=== PATIENT | male | born 1960 | race Caucasian/White ===

== ENCOUNTER 2024-08-17 12:01 | Observation (INO) ==
[2024-08-17 12:55] LABS: Basophils # (auto) 0.06 K/uL (0.00-0.20); Basophils % (auto) 0.8 %; Eosinophils # (auto) 0.06 K/uL (0.00-0.50); Eosinophils % (auto) 0.8 %; Hematocrit (blood only) 42.7 % (42.0-52.0); Hemoglobin 15.5 g/dl (14.0-18.0); Immature Granulocytes # (auto) 0.02 K/uL (0.01-0.20); Immature Granulocytes % (auto) 0.3 %; Lymphocytes # (auto) 1.83 K/uL (1.20-3.40); Lymphocytes % (auto) 24.2 %; Mean Corpuscular Hemoglobin 31.6 pg (25.0-34.0); Mean Corpuscular Hgb Conc 36.3 g/dL (32.0-36.0); Mean Platelet Volume 10.4 fL (9.4-12.4); Monocytes # (auto) 0.99 K/uL (0.11-0.59); Monocytes % (auto) 13.1 %; Neutrophils # (auto) 4.61 K/uL (1.40-6.50); Neutrophils % (auto) 60.8 %; Platelet Count 207 K/uL (130-400); RDW Coefficient of Variation 12.4 % (11.5-14.5); RDW Standard Deviation 39.3 fL (36.4-46.3); Red Blood Count 4.91 M/uL (4.70-6.10); White Blood Count 7.57 K/ul (4.8-10.8)
[2024-08-17] MEDS: SODIUM CHLORIDE 0.9% 1,000 ML IV ONE (12:58)
[2024-08-17] MEDS: SODIUM CHLORIDE 0.9% 1,000 ML IV SCH (12:58)
[2024-08-17 13:09] LABS: iSTAT Creatinine 1.1 mg/dl (0.6-1.3); iSTAT Hemoglobin 13.9 g/dl (14.0-18.0); iSTAT Ionized Calcium 1.17 mmol/l (1.12-1.32); iSTAT Potassium 2.5 mmol/L (3.3-5.0)
[2024-08-17 13:22] LABS: BUN Creatinine Ratio 14.4 (10-20); Bilirubin Direct 0.2 mg/dl (0-0.2); Bilirubin,Total 0.8 mg/dl (0.2-1.0); Calcium 9.3 mg/dl (8.6-10.3); Creatinine Clr Calc Pharmacy 89.1 ml/min; Magnesium 1.9 mg/dl (1.7-2.4); Potassium 2.6 mmol/L (3.5-5.1); Total Protein 7.3 gm/dl (6.0-8.3)
[2024-08-17 13:23] LABS: Partial Thromboplastin Time 27 Seconds (21-31); Prothrombin Time 10.4 Seconds (9.0-12.0)
[2024-08-17 13:27] LABS: Troponin I High Sensitivity 6.2 pg/ml (0-20)
[2024-08-17] MEDS: OPTIRAY 320 125ml IV ONE (13:47)
[2024-08-17] MEDS: dilTIAZem HCl 5 MG/ML 5 ML VIAL IV STA (14:02)
[2024-08-17] MEDS: dilTIAZem HCl 5 MG/ML 5 ML VIAL IV ONE (14:02)
--- NOTE | 2024-08-17 14:04 | XRay Report ---
XR chest 1V portable CLINICAL HISTORY: Sepsis COMPARISON STUDY: 11/30/2020 FINDINGS: Heart size and pulmonary vasculature are normal. No effusion, consolidation, or pneumothora x. IMPRESSION: No acute findings. ACT 112: Negative or not required by law. Electronically signed by: Elpidio Ramirez M.D. 08/17/2024 2:03 PM
[2024-08-17] MEDS: POTASSIUM CHLORIDE 20 MEQ/15 ML UDC PO STA (14:05)
[2024-08-17] MEDS: POTASSIUM CHLORIDE / WTR 10 MEQ/100 ML PLCT IV SCH ×2 (14:08→17:20)
--- NOTE | 2024-08-17 14:09 | CT Scan Report ---
CT angio chest PE protocol CT DOSE: 828.91 mGy.cm HISTORY: ro pe. TECHNIQUE: Multiple CTA images of the chest were obtained after the intravenous administration of 112 ml Optiray. Coronal and sagittal MIPS were obtained from the axial data set and were submitted for review. All measurements were obtained according to NASCET criteria. A dose lowering technique was u tilized adhering to the principles of ALARA. COMPARISON STUDY: None FINDINGS: There are mild airway secretions. There is no pulmonary consolidation or pleural effusion. No pneumothorax. No enlarged adenopathy. Retroesophageal right subclavian artery is present, anatomic variant. No pericardial effusion. No thoracic aortic dissection or aneurysm. No pulmonary embolism. There is mild fatty liver. There are mild thoracic spine degenerative changes and minimal scoliosis. IMPRESSION: No pulmonary embolism or pneumonia. Otherwise as described. ACT 112: Negative or not required by law. The above report was generated using voice recognition software. It may contain grammatical, syntax o r spelling errors. Electronically signed by: Elpidio Ramirez M.D. 08/17/2024 2:07 PM
[2024-08-17 14:33] LABS: Adenovirus PCR Not Detected (NotDetected); Bordetella parapertussis PCR Not Detected (NotDetected); Bordetella pertussis PCR Not Detected (NotDetected); Chlamydia pneumoniae PCR Not Detected (NotDetected); Coronavirus 229E PCR Not Detected (NotDetected); Coronavirus CoV-2 (COVID19)PCR Not Detected (NotDetected); Coronavirus HKU1 PCR Not Detected (NotDetected); Coronavirus NL63 PCR Not Detected (NotDetected); Coronavirus OC43PCR Not Detected (NotDetected); Human Metapneumovirus PCR Not Detected (NotDetected); Influenza A PCR Not Detected (NotDetected); Influenza B PCR Not Detected (NotDetected); Mycoplasma pneumoniae PCR Not Detected (NotDetected); Parainfluenza Virus 1 PCR Not Detected (NotDetected); Parainfluenza Virus 2 PCR Not Detected (NotDetected); Parainfluenza Virus 3 PCR Not Detected (NotDetected); Parainfluenza Virus 4 PCR Not Detected (NotDetected); Respiratory Syncytial VirusPCR Not Detected (NotDetected); Rhinovirus/Enterovirus PCR Not Detected (NotDetected)
[2024-08-17 15:00] LABS: Base Excess VBG 0.7 mEq/L; HCO3 VBG 25 mmol/L; Oxygen Saturation VBG < 60.0 %; PCO2 VBG 40 mmHg (38-50); PO2 VBG < 20 mmHg; pH VBG 7.41 (7.36-7.41)
--- NOTE | 2024-08-17 15:03 | History & Physical Report ---
Date of Service August 17, 2024 Assessment & Plan (1) Atrial fibrillation with rapid ventricular response: (2) Transaminitis: (3) Depression: Plan 64-year-old male presents with chills fevers nausea vomiting and shortness of breath. Not found of any acute infectious etiology at this time. But was found to be in atrial fibrillation rapid ventricular response. Clinically dehydrated and hypokalemic. Incidentally noted to have transaminitis on presentation #Atrial fibrillation rapid ventricular response. Patient will have his potassium augmented to be given a gram of magnesium although his mg low normal. Will not institute anticoagulation until we evaluate his transaminitis. An echocardiogram is currently ordered. Metoprolol will be given tartrate twice daily and as needed will be used to control heart rate. Likely in the a.m. will begin Eliquis therapy was already educated on stroke risk with atrial fibrillation #Transaminitis, looking for source of the patient's recent fever and illness without evidence of pulmonary changes on imaging of chest we will pursue an ultrasound of his right upper quadrant given his transaminitis although he has no elevation of bilirubin or alkaline phosphatase. Likewise urine culture will also be sent despite negative urine analysis. Stool BioFire is pending #Depression patient will be continued on Lexapro therapy at this time DVT prevention will be SCDs with transition Eliquis in short order patient is a full code History of Present Illness Primary Care Provider: Daisha Case DO 64-year-old male presents via private vehicle for cough intermittent fevers for the last 9 days or so. Was on outpatient antibiotics not getting any better, found to be in atrial fibrillation rapid ventricular response was clinically dehydrated on presentation and heart rate did improve with hydration he is markedly hypokalemic. He does not have a history of an irregular heartbeat. He has not had significant diarrhea to explain potassium losses he states that his fevers eventually quiescent as an outpatient he did take cefdinir without much help in his opinion Evaluation in the ER includes a negative respiratory BioFire negative chest imaging no leukocytosis no procalcitonin. Blood cultures were obtained and pending. Stool BioFire was obtained and pending. (She has no history of frequent loose stools) he is not in any heart failure with regard to his A-fib and has a negative troponin Allergies Allergy/AdvReac Type Severity Reaction Status Date / Time No Known Allergies Allergy Verified 08/17/24 15:12 Home Medications Medication Instructions Recorded Confirmed Type acetaminophen 500 mg capsule 1,000 mg PO DIRECTED PRN Pain 11/24/20 08/17/24 History cetirizine 10 mg tablet (Zyrtec) 10 mg PO QDL 11/24/20 08/17/24 History fluticasone propionate 50 2 spray intranasal QDL 11/24/20 08/17/24 History mcg/actuation nasal spray,suspension amoxicillin 500 mg capsule 2,000 mg PO DIRECTED PRN PRIOR 03/20/22 08/17/24 History TO DENTAL PROCEDURES atorvastatin 20 mg tablet 20 mg PO QDL 03/20/22 08/17/24 History omeprazole 20 mg capsule,delayed 20 mg PO DAILYBB 03/20/22 08/17/24 History release albuterol sulfate 90 mcg/actuation 1 - 2 puff inhalation DIRECTED 08/17/24 08/17/24 History aerosol inhaler PRN Shortness Of Breath Or Wheezing ascorbic acid (vitamin C) 1,000 mg 1,000 mg PO QDL 08/17/24 08/17/24 History tablet (Vitamin C) aspirin 81 mg tablet,delayed 81 mg PO QDL 08/17/24 08/17/24 History release cefdinir 300 mg capsule 300 mg PO BID 08/17/24 08/17/24 History cholecalciferol (vitamin D3) 125 125 mcg PO QDL 08/17/24 08/17/24 History mcg (5,000 unit) tablet (Vitamin D3) escitalopram oxalate 10 mg tablet 10 mg PO QDL 08/17/24 08/17/24 History fluticasone 100 mcg-salmeterol 50 1 inh inhalation BID 08/17/24 08/17/24 History mcg/dose blistr powdr for inhalation (Wixela Inhub) ginkgo biloba 40 mg tablet 40 mg PO QDL 08/17/24 08/17/24 History glucosamine 750 ss-vstbvoaglyj-ryo 1 tab PO QDL 08/17/24 08/17/24 History no1 644 mg-C 30 mg-cinthya 1 mg tablet (Osteo Bi-Flex Triple Strength) magnesium oxide 400 mg PO QDL 08/17/24 08/17/24 History melatonin 10 mg tablet 10 mg PO HS PRN Sleep 08/17/24 08/17/24 History omega-3 fatty acids 1,250 mg 1,250 mg PO QDL 08/17/24 08/17/24 History capsule vitamin B complex 1 cap PO QDL 08/17/24 08/17/24 History Past Med/Surg History Problem List (Updated 08/17/24 @ 16:39 by Ilir Dean MD) Acute hypokalemia (Acute) Transaminitis (Acute) Atrial fibrillation with rapid ventricular response (Acute) Acute pain of right hip (Acute) Dislocation of internal right hip prosthesis, initial encounter (Acute) Degenerative joint disease of right hip Degenerative joint disease of left hip Encounter for pre-operative examination Medical History Anxiety Depression GERD (gastroesophageal reflux disease) Well controlled and stable Hyperlipidemia Surgical History History of repair of rotator cuff RIGHT H/O hand surgery THUMB History of carpal tunnel release RIGHT Left elbow fracture ORIF History of colonoscopy Family History Other Cancer No known health problems Social History Smoking Status: Former smoker Second Hand Exposure: No; Do You Dip or Chew Tobacco: No; Hx Alcohol Use: Yes Alcohol type: beer Hx Substance Use: No Preferred Language: Chinese Communication Ability: Effective 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 Vital signs as documented. Head exam is normocephalic atraumatic Neck is without JVD, thyromegaly, or carotid bruits. Lungs are clear to auscultation, no focal loss of breath sounds Cardiac exam, irregular and tachycardic Abdominal exam reveals normal bowel sounds, soft patient seen mildly tender in right upper quadrant although denies it but was uncomfortable during exam Extremities are nonedematous and both pedal pulses are present Neurologic exam is alert and oriented, no focal loss of strength or sensation Skin is without bruises or rashes Psychologically is without concerns for anxiety or depression.. Results & Data Results & Data Vital Signs (Past 12 Hours) Vital Signs Temp Pulse Resp BP Pulse Ox O2 Del Method 08/17/24 14:51 138 H 24 105/85 99 08/17/24 14:39 144 H 22 120/82 97 Room Air 08/17/24 14:27 122 H 19 101/73 98 Room Air 08/17/24 14:10 124/99 08/17/24 14:05 118/78 08/17/24 14:00 114/86 08/17/24 13:57 106 H 23 96 08/17/24 13:55 117/83 08/17/24 13:06 102 H 20 98 Room Air 08/17/24 13:00 112 H 12 110/76 98 Room Air 08/17/24 12:54 123 H 18 107/83 97 Room Air 08/17/24 12:43 133 H 08/17/24 12:39 121 H 16 119/84 96 Room Air 08/17/24 12:10 98.4 F 125 H 20 108/79 95 Room Air PG Care Time/CCT Total # of Minutes Spent Total Time Spent with Patient: Total time spent is greater than 50% in coordination of care (as documented) at patient's floor/unit and/or counseling patient: Coding Level of Care Code 19421 INT INP/OBS CARE 3/75MIN Diagnoses Atrial fibrillation with rapid ventricular response I48.91 Transaminitis R74.01 Depression F32.9
[2024-08-17 15:49] LABS: C. diff 027-NAP1-BI NEGATIVE; Cdiff Toxin B Gene (2yr or >) Negative Cdiff Gene (Neg)
[2024-08-17 16:20] LABS: Adenovirus F 40/41 PCR Not Detected (NotDetected); Astrovirus PCR Not Detected (NotDetected); Campylobacter PCR Not Detected (NotDetected); Cryptosporidium PCR Not Detected (NotDetected); Cyclospora cayetanensis PCR Not Detected (NotDetected); Entamoeba histolytica PCR Not Detected (NotDetected); Enteroaggregative E.coli(EAEC) Not Detected (NotDetected); Enteropathogenic E.coli (EPEC) Not Detected (NotDetected); Enterotoxigenic E.coli (ETEC) Not Detected (NotDetected); Giardia lamblia PCR Not Detected (NotDetected); Norovirus GI/GII PCR Not Detected (NotDetected); Plesiomonas shigelloides PCR Not Detected (NotDetected); Rotavirus A PCR Not Detected (NotDetected); Salmonella PCR Not Detected (NotDetected); Sapovirus PCR Not Detected (NotDetected); Shiga-like Toxin E.coli (STEC) Not Detected (NotDetected); Shigella/Enteroinvasive E.coli Not Detected (NotDetected); Vibrio cholerae PCR Not Detected (NotDetected); Vibrio species PCR Not Detected (NotDetected); Yersinia enterocolitica PCR Not Detected (NotDetected)
--- NOTE | 2024-08-17 16:26 | Emergency Department Note ---
History of Present Illness General Chief complaint: Illness Stated complaint: LIGHTHEADED, VOMITING, DIARHEA, WEAKNESS, TRMEMORS Time Seen by Provider: 08/17/24 12:36 History of Present Illness Provider Complaint: + nausea, + vomiting and + diarrhea; no abdominal pain Onset (ago): week(s) 1 Description of Vomiting: no bilious, no blood-streaked, no bloody or no coffee grounds Description of Diarrhea: no tarry, no blood-streaked or no bloody (bright red) Associated Abdominal Pain: No Context: no foreign travel, no possible food poisoning, no recent antibiotic use, no recent surgery/procedure, no alcohol abuse, no trauma, no anticoagulant use, no caffeine, no smoking or no marijuana use Associated symptoms: + myalgias, + fever/chills and + shortness of breath; no chest pain, no headaches, no rash or no dysuria Home Medications Medication Instructions Recorded Confirmed Type acetaminophen 500 mg capsule 1,000 mg PO DIRECTED PRN Pain 11/24/20 08/17/24 History cetirizine 10 mg tablet (Zyrtec) 10 mg PO QDL 11/24/20 08/17/24 History fluticasone propionate 50 2 spray intranasal QDL 11/24/20 08/17/24 History mcg/actuation nasal spray,suspension amoxicillin 500 mg capsule 2,000 mg PO DIRECTED PRN PRIOR 03/20/22 08/17/24 History TO DENTAL PROCEDURES atorvastatin 20 mg tablet 20 mg PO QDL 03/20/22 08/17/24 History omeprazole 20 mg capsule,delayed 20 mg PO DAILYBB 03/20/22 08/17/24 History release albuterol sulfate 90 mcg/actuation 1 - 2 puff inhalation DIRECTED 08/17/24 08/17/24 History aerosol inhaler PRN Shortness Of Breath Or Wheezing ascorbic acid (vitamin C) 1,000 mg 1,000 mg PO QDL 08/17/24 08/17/24 History tablet (Vitamin C) aspirin 81 mg tablet,delayed 81 mg PO QDL 08/17/24 08/17/24 History release cefdinir 300 mg capsule 300 mg PO BID 08/17/24 08/17/24 History cholecalciferol (vitamin D3) 125 125 mcg PO QDL 08/17/24 08/17/24 History mcg (5,000 unit) tablet (Vitamin D3) escitalopram oxalate 10 mg tablet 10 mg PO QDL 08/17/24 08/17/24 History fluticasone 100 mcg-salmeterol 50 1 inh inhalation BID 08/17/24 08/17/24 History mcg/dose blistr powdr for inhalation (Wixela Inhub) ginkgo biloba 40 mg tablet 40 mg PO QDL 08/17/24 08/17/24 History glucosamine 750 gb-[id number]-uvn 1 tab PO QDL 08/17/24 08/17/24 History no1 644 mg-C 30 mg-cinthya 1 mg tablet (Osteo Bi-Flex Triple Strength) magnesium oxide 400 mg PO QDL 08/17/24 08/17/24 History melatonin 10 mg tablet 10 mg PO HS PRN Sleep 08/17/24 08/17/24 History omega-3 fatty acids 1,250 mg 1,250 mg PO QDL 08/17/24 08/17/24 History capsule vitamin B complex 1 cap PO QDL 08/17/24 08/17/24 History Allergies Allergy/AdvReac Type Severity Reaction Status Date / Time No Known Allergies Allergy Verified 08/17/24 15:12 Past Med/Surg History Problem List (Updated 08/17/24 @ 16:39 by Ilir Dean MD) Acute hypokalemia (Acute) Transaminitis (Acute) Atrial fibrillation with rapid ventricular response (Acute) Acute pain of right hip (Acute) Dislocation of internal right hip prosthesis, initial encounter (Acute) Degenerative joint disease of right hip Degenerative joint disease of left hip Encounter for pre-operative examination Medical History Anxiety Depression GERD (gastroesophageal reflux disease) Well controlled and stable Hyperlipidemia Surgical History History of repair of rotator cuff RIGHT H/O hand surgery THUMB History of carpal tunnel release RIGHT Left elbow fracture ORIF History of colonoscopy Family History Other Cancer No known health problems Social History Smoking Status: Former smoker Second Hand Exposure: No; Do You Dip or Chew Tobacco: No; Hx Alcohol Use: Yes Alcohol type: beer Hx Substance Use: No Preferred Language: Malawian Communication Ability: Effective 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 Beliefs That Will Affect Care: None Current Living Situation: Significant Other current occupational status: retired Feels Safe at Home: Yes Assistive Devices: Glasses Physical Exam 2 Vital Signs: Vital Signs - 24 hr 08/17/24 12:10 08/17/24 12:39 08/17/24 12:43 Temperature 36.9 C Temperature Source Temporal Artery Sc an Pulse Rate 125 H 121 H 133 H Pulse Rate from Sp O2 Sensor Pulse Rhythm Regular Pulse Strength Normal Respiratory Rate 20 16 Respiratory Effort / Characteristics Non-Labored Sponta neous Respiratory Depth Normal Blood Pressure 108/79 119/84 Blood Pressure Josefa n 88 95 Blood Pressure Pos ition Sitting Pulse Oximetry 95 96 Oxygen Delivery Me thod Room Air Room Air Sepsis Recent Feve r Within 48 Hours No Sepsis New/Unexpla ined Change in Men naa Status N/A Sepsis Action Take n by Nursing No Action Required 08/17/24 12:54 08/17/24 13:00 08/17/24 13:06 Temperature Temperature Source Pulse Rate 123 H 112 H 102 H Pulse Rate from Sp O2 Sensor Pulse Rhythm Irregular Pulse Strength Respiratory Rate 18 12 20 Respiratory Effort / Characteristics Respiratory Depth Blood Pressure 107/83 110/76 Blood Pressure Josefa n 91 87 Blood Pressure Pos ition Pulse Oximetry 97 98 98 Oxygen Delivery Me thod Room Air Room Air Room Air Sepsis Recent Feve r Within 48 Hours Sepsis New/Unexpla ined Change in Men naa Status Sepsis Action Take n by Nursing 08/17/24 13:55 08/17/24 13:57 08/17/24 14:00 Temperature Temperature Source Pulse Rate 106 H Pulse Rate from Sp O2 Sensor 105 H Pulse Rhythm Pulse Strength Respiratory Rate 23 Respiratory Effort / Characteristics Respiratory Depth Blood Pressure 117/83 114/86 Blood Pressure Josefa n 92 99 Blood Pressure Pos ition Pulse Oximetry 96 Oxygen Delivery Me thod Sepsis Recent Feve r Within 48 Hours Sepsis New/Unexpla ined Change in Men naa Status Sepsis Action Take n by Nursing 08/17/24 14:05 08/17/24 14:10 08/17/24 14:27 Temperature Temperature Source Pulse Rate 122 H Pulse Rate from Sp O2 Sensor Pulse Rhythm Pulse Strength Respiratory Rate 19 Respiratory Effort / Characteristics Respiratory Depth Blood Pressure 118/78 124/99 101/73 Blood Pressure Josefa n 97 111 82 Blood Pressure Pos ition Pulse Oximetry 98 Oxygen Delivery Me thod Room Air Sepsis Recent Feve r Within 48 Hours Sepsis New/Unexpla ined Change in Men naa Status Sepsis Action Take n by Nursing 08/17/24 14:39 08/17/24 14:51 08/17/24 15:01 Temperature Temperature Source Pulse Rate 144 H 138 H Pulse Rate from Sp O2 Sensor 113 H Pulse Rhythm Pulse Strength Respiratory Rate 22 24 Respiratory Effort / Characteristics Respiratory Depth Blood Pressure 120/82 105/85 111/78 Blood Pressure Josefa n 94 91 83 Blood Pressure Pos ition Pulse Oximetry 97 99 Oxygen Delivery Me thod Room Air Sepsis Recent Feve r Within 48 Hours Sepsis New/Unexpla ined Change in Men naa Status Sepsis Action Take n by Nursing 08/17/24 15:26 08/17/24 15:56 08/17/24 16:00 Temperature Temperature Source Pulse Rate 117 H 115 H Pulse Rate from Sp O2 Sensor 99 H Pulse Rhythm Pulse Strength Respiratory Rate 16 12 Respiratory Effort / Characteristics Respiratory Depth Blood Pressure 111/86 112/87 98/77 L Blood Pressure Josefa n 90 95 84 Blood Pressure Pos ition Pulse Oximetry 96 97 Oxygen Delivery Me thod Sepsis Recent Feve r Within 48 Hours Sepsis New/Unexpla ined Change in Men naa Status Sepsis Action Take n by Nursing 08/17/24 16:03 08/17/24 16:05 08/17/24 16:06 Temperature Temperature Source Pulse Rate 104 H 122 H Pulse Rate from Sp O2 Sensor 94 H 86 Pulse Rhythm Pulse Strength Respiratory Rate 20 20 Respiratory Effort / Characteristics Respiratory Depth Blood Pressure 106/80 Blood Pressure Josefa n 84 Blood Pressure Pos ition Pulse Oximetry 96 97 Oxygen Delivery Me thod Sepsis Recent Feve r Within 48 Hours Sepsis New/Unexpla ined Change in Men naa Status Sepsis Action Take n by Nursing 08/17/24 16:10 08/17/24 16:12 08/17/24 16:15 Temperature Temperature Source Pulse Rate 114 H Pulse Rate from Sp O2 Sensor 99 H Pulse Rhythm Pulse Strength Respiratory Rate 21 Respiratory Effort / Characteristics Respiratory Depth Blood Pressure 106/78 102/80 Blood Pressure Josefa n 83 84 Blood Pressure Pos ition Pulse Oximetry 95 Oxygen Delivery Me thod Sepsis Recent Feve r Within 48 Hours Sepsis New/Unexpla ined Change in Men naa Status Sepsis Action Take n by Nursing Physical Exam: Physical Exam HENT: Exam performed. - Head: Normocephalic and atraumatic. EYES: Conjunctivae and EOM are normal. Right eye exhibits no discharge. Left eye exhibits no discharge. No scleral icterus. NECK: Normal range of motion. Neck supple. No JVD present. CV: Tachycardic rate, irregular rhythm, normal heart sounds and intact distal pulses. There is no peripheral edema. Palpable radial pulses bue. PULM/CHEST: Effort normal and breath sounds normal. No respiratory distress. No stridor. no wheezes. no rales. ABD: The abdomen is soft. There is no tenderness. NEURO: Motor and sensation grossly intact. Course Course 1236: The patient was evaluated in room C8. A complete history and physical exam was performed Cardiac monitoring: An order was placed for continuous cardiac monitoring. The monitor shows a rate of 120-160 with atrial fibrilation rhythm interpreted by me Patient has no history of atrial fibrillation. Large-bore IV access was obtained and IV fluids started on the patient. As the patient was receiving IV fluids his ventricular rate improved. Thought the patient could be in A-fib secondary to electrolyte imbalance and or volume depletion. Pressure was mildly low we will hold off on any inotropic medications at this time. 1255: Vital signs improving. Ventricular rate improving with IV fluids. Patient continues to be in A-fib but his ventricular rate is now 100-120. 1425: Vital signs stable. Patient remains in A-fib but his ventricular rate is improved after IV fluids. Labs are significant for a potassium of 2.5. Magnesium was within normal limits. Patient does have elevated liver function test. No pain on palpation of the abdomen. BioFire negative. [facility] Potassium repletion started in the emergency department. Administered Medications Discontinued Medications Diltiazem HCl (Diltiazem Hcl 5 Mg/Ml 5 Ml Vial) Confirm Administered Dose 25 mg IV .STK-MED ONE Stop: 08/17/24 12:39 Last Admin: 08/17/24 14:02 Dose: Not Given Documented By: REY Diltiazem HCl (Diltiazem Hcl 5 Mg/Ml 5 Ml Vial) 15 mg IV NOW STA Stop: 08/17/24 12:42 Last Admin: 08/17/24 14:02 Dose: Not Given Documented By: REY Sodium Chloride (Nss) 1,000 mls @ 999 mls/hr IV .Q1H1M AMY Stop: 08/17/24 13:45 Last Infusion: 08/17/24 13:56 Dose: Infused Documented By: Admin: 08/17/24 12:58 Dose: 999 mls/hr Documented By: Sodium Chloride (Nss) 1,000 mls @ 999 mls/hr IV .Q1H1M ONE Stop: 08/17/24 13:42 Last Infusion: 08/17/24 13:56 Dose: Infused Documented By: Admin: 08/17/24 12:58 Dose: 999 mls/hr Documented By: Potassium Chloride (K Tavo / Wtr) 10 meq in 100 mls @ 100 mls/hr IV Q1H AMY Stop: 08/17/24 15:29 Last Admin: 08/17/24 15:49 Dose: 100 mls/hr Documented By: Infusion: 08/17/24 15:42 Dose: Infused Documented By: Admin: 08/17/24 14:08 Dose: 100 mls/hr Documented By: REY Ioversol (Optiray 320 125ml) 112 ml IV ONCE ONE Stop: 08/17/24 13:48 Last Admin: 08/17/24 13:47 Dose: 112 ml Documented By: JIMBO Potassium Chloride (Potassium Chloride 20 Meq/15 Ml Udc) 40 meq PO NOW STA Stop: 08/17/24 13:26 Last Admin: 08/17/24 14:05 Dose: 40 meq Documented By: REY Medical Decision Making Laboratory Data Attestation: I reviewed the patient's lab results. 08/17/24 12:26 08/17/24 12:26 Lab Results 08/17/24 08/17/24 08/17/24 Range/Units 12:26 12:50 12:56 WBC 7.57 (4.8-10.8) K/ul RBC 4.91 (4.70-6.10) M/uL Hgb 15.5 (14.0-18.0) g/dl POC Hgb 13.9 L (14.0-18.0) g/dl Hct 42.7 (42.0-52.0) % POC Hct 41 L (42-52) % MCV 87.0 (80.0-100.0) fL MCH 31.6 (25.0-34.0) pg MCHC 36.3 H (32.0-36.0) g/dL RDW Std Deviation 39.3 (36.4-46.3) fL RDW Coeff of Cathleen 12.4 (11.5-14.5) % Plt Count 207 (130-400) K/uL MPV 10.4 (9.4-12.4) fL Immature Gran % (Auto) 0.3 % Neut % (Auto) 60.8 % Lymph % (Auto) 24.2 % Campbell % (Auto) 13.1 % Eos % (Auto) 0.8 % Baso % (Auto) 0.8 % Neut # (Auto) 4.61 (1.40-6.50) K/uL Lymph # (Auto) 1.83 (1.20-3.40) K/uL Campbell # (Auto) 0.99 H (0.11-0.59) K/uL Eos # (Auto) 0.06 (0.00-0.50) K/uL Baso # (Auto) 0.06 (0.00-0.20) K/uL Immature Gran # (Auto) 0.02 (0.01-0.20) K/uL PT 10.4 (9.0-12.0) Seconds INR 1.0 (0.9-1.1) APTT 27 (21-31) Seconds PTT Ratio 1.0 VBG pH (7.36-7.41) VBG pCO2 (38-50) mmHg VBG pO2 mmHg VBG HCO3 mmol/L VBG O2 Saturation % VBG Base Excess mEq/L POC Sodium 137 (135-144) mmol/L Sodium 135 L (136-145) mmol/L POC Potassium 2.5 L* (3.3-5.0) mmol/L Potassium 2.6 L (3.5-5.1) mmol/L POC Chloride 100 L (101-112) mmol/L Chloride 102 (98-107) mmol/L Carbon Dioxide 21 (21-32) mmol/L POC Total CO2 24 (24-31) mmol/L Anion Gap 12 H (3-11) POC Anion Gap 17.0 (16-25) mmol/L POC BUN 13 (7-18) mg/dl BUN 13 (6-23) mg/dl Creatinine 0.90 (0.6-1.4) mg/dl POC Creatinine 1.1 (0.6-1.3) mg/dl Est Cr Clr Drug Dosing 89.1 ml/min eGFR 94.19 BUN/Creatinine Ratio 14.4 (10-20) Glucose 116 H (70-99(Fasting)) mg/dl POC Glucose (other) 111 H (70-99) mg/dl Lactate 1.1 (0.4-2.0) mmol/L Calcium 9.3 (8.6-10.3) mg/dl POC Ioniz Calcium Johnnie 1.17 (1.12-1.32) mmol/l Magnesium 1.9 (1.7-2.4) mg/dl Total Bilirubin 0.8 (0.2-1.0) mg/dl Direct Bilirubin 0.2 (0-0.2) mg/dl AST 81 H (13-39) U/L ALT 90 H (7-52) U/L Alkaline Phosphatase 121 H (34-104) U/L Troponin I High Sens 6.2 (0-20) pg/ml Total Protein 7.3 (6.0-8.3) gm/dl Albumin 4.2 (3.4-5.0) gm/dl Procalcitonin 0.26 (0-0.5) ng/ml Stl C. cayetanensis PCR (NotDetected) Stool Rotavirus A PCR (NotDetected) Stl Adenov F 40/41 PCR (NotDetected) Stool Astrovirus (PCR) (NotDetected) Stool Campylobacter PCR (NotDetected) Stl C. diff Tox B Gene (Neg) Stl C. diff 027-NAP1-BI Stool Cryptosporidium PCR (NotDetected) Stl E.coli Shiga Tox PCR (NotDetected) Stl Enterotoxigenic E PCR (NotDetected) Stool EPEC (PCR) (NotDetected) Stool EAEC (PCR) (NotDetected) Stl E. histolytica PCR (NotDetected) Stool Giardia Lamblia PCR (NotDetected) Stool Salmonella PCR (NotDetected) Stool Sapovirus (PCR) (NotDetected) Stl P. shigelloides PCR (NotDetected) Stl Shigella/EIEC PCR (NotDetected) St Y.enterocolitica PCR (NotDetected) Stool Vibrio (PCR) (NotDetected) Stl Vibrio cholerae PCR (NotDetected) Stl Norovirus GI/GII PCR (NotDetected) Adenovirus (PCR) Not Detected (NotDetected) B. pertussis DNA (PCR) Not Detected (NotDetected) B.parapertussis DNA PCR Not Detected (NotDetected) C. pneumoniae DNA (PCR) Not Detected (NotDetected) Coronavirus OC43 (PCR) Not Detected (NotDetected) Coronavirus HKU1 (PCR) Not Detected (NotDetected) Coronavirus 229E (PCR) Not Detected (NotDetected) SARS-CoV-2 (PCR) Not Detected (NotDetected) Coronavirus NL63 (PCR) Not Detected (NotDetected) Human Metapneumovir PCR Not Detected (NotDetected) Influenza Type A (PCR) Not Detected (NotDetected) Influenza Type B (PCR) Not Detected (NotDetected) M. pneumoniae (PCR) Not Detected (NotDetected) Parainfluenza 1 (PCR) Not Detected (NotDetected) Parainfluenza 2 (PCR) Not Detected (NotDetected) Parainfluenza 3 (PCR) Not Detected (NotDetected) Parainfluenza 4 (PCR) Not Detected (NotDetected) RSV (PCR) Not Detected (NotDetected) Entero/Rhino (PCR) Not Detected (NotDetected) 08/17/24 08/17/24 Range/Units 14:45 14:52 WBC (4.8-10.8) K/ul RBC (4.70-6.10) M/uL Hgb (14.0-18.0) g/dl POC Hgb (14.0-18.0) g/dl Hct (42.0-52.0) % POC Hct (42-52) % MCV (80.0-100.0) fL MCH (25.0-34.0) pg MCHC (32.0-36.0) g/dL RDW Std Deviation (36.4-46.3) fL RDW Coeff of Cathleen (11.5-14.5) % Plt Count (130-400) K/uL MPV (9.4-12.4) fL Immature Gran % (Auto) % Neut % (Auto) % Lymph % (Auto) % Campbell % (Auto) % Eos % (Auto) % Baso % (Auto) % Neut # (Auto) (1.40-6.50) K/uL Lymph # (Auto) (1.20-3.40) K/uL Campbell # (Auto) (0.11-0.59) K/uL Eos # (Auto) (0.00-0.50) K/uL Baso # (Auto) (0.00-0.20) K/uL Immature Gran # (Auto) (0.01-0.20) K/uL PT (9.0-12.0) Seconds INR (0.9-1.1) APTT (21-31) Seconds PTT Ratio VBG pH 7.41 (7.36-7.41) VBG pCO2 40 (38-50) mmHg VBG pO2 < 20 mmHg VBG HCO3 25 mmol/L VBG O2 Saturation < 60.0 % VBG Base Excess 0.7 mEq/L POC Sodium (135-144) mmol/L Sodium (136-145) mmol/L POC Potassium (3.3-5.0) mmol/L Potassium (3.5-5.1) mmol/L POC Chloride (101-112) mmol/L Chloride (98-107) mmol/L Carbon Dioxide (21-32) mmol/L POC Total CO2 (24-31) mmol/L Anion Gap (3-11) POC Anion Gap (16-25) mmol/L POC BUN (7-18) mg/dl BUN (6-23) mg/dl Creatinine (0.6-1.4) mg/dl POC Creatinine (0.6-1.3) mg/dl Est Cr Clr Drug Dosing ml/min eGFR BUN/Creatinine Ratio (10-20) Glucose (70-99(Fasting)) mg/dl POC Glucose (other) (70-99) mg/dl Lactate (0.4-2.0) mmol/L Calcium (8.6-10.3) mg/dl POC Ioniz Calcium Johnnie (1.12-1.32) mmol/l Magnesium (1.7-2.4) mg/dl Total Bilirubin (0.2-1.0) mg/dl Direct Bilirubin (0-0.2) mg/dl AST (13-39) U/L ALT (7-52) U/L Alkaline Phosphatase (34-104) U/L Troponin I High Sens (0-20) pg/ml Total Protein (6.0-8.3) gm/dl Albumin (3.4-5.0) gm/dl Procalcitonin (0-0.5) ng/ml Stl C. cayetanensis PCR Not Detected (NotDetected) Stool Rotavirus A PCR Not Detected (NotDetected) Stl Adenov F 40/41 PCR Not Detected (NotDetected) Stool Astrovirus (PCR) Not Detected (NotDetected) Stool Campylobacter PCR Not Detected (NotDetected) Stl C. diff Tox B Gene Negative Cdiff Gene (Neg) Stl C. diff 027-NAP1-BI NEGATIVE Stool Cryptosporidium PCR Not Detected (NotDetected) Stl E.coli Shiga Tox PCR Not Detected (NotDetected) Stl Enterotoxigenic E PCR Not Detected (NotDetected) Stool EPEC (PCR) Not Detected (NotDetected) Stool EAEC (PCR) Not Detected (NotDetected) Stl E. histolytica PCR Not Detected (NotDetected) Stool Giardia Lamblia PCR Not Detected (NotDetected) Stool Salmonella PCR Not Detected (NotDetected) Stool Sapovirus (PCR) Not Detected (NotDetected) Stl P. shigelloides PCR Not Detected (NotDetected) Stl Shigella/EIEC PCR Not Detected (NotDetected) St Y.enterocolitica PCR Not Detected (NotDetected) Stool Vibrio (PCR) Not Detected (NotDetected) Stl Vibrio cholerae PCR Not Detected (NotDetected) Stl Norovirus GI/GII PCR Not Detected (NotDetected) Adenovirus (PCR) (NotDetected) B. pertussis DNA (PCR) (NotDetected) B.parapertussis DNA PCR (NotDetected) C. pneumoniae DNA (PCR) (NotDetected) Coronavirus OC43 (PCR) (NotDetected) Coronavirus HKU1 (PCR) (NotDetected) Coronavirus 229E (PCR) (NotDetected) SARS-CoV-2 (PCR) (NotDetected) Coronavirus NL63 (PCR) (NotDetected) Human Metapneumovir PCR (NotDetected) Influenza Type A (PCR) (NotDetected) Influenza Type B (PCR) (NotDetected) M. pneumoniae (PCR) (NotDetected) Parainfluenza 1 (PCR) (NotDetected) Parainfluenza 2 (PCR) (NotDetected) Parainfluenza 3 (PCR) (NotDetected) Parainfluenza 4 (PCR) (NotDetected) RSV (PCR) (NotDetected) Entero/Rhino (PCR) (NotDetected) Imaging Data Attestation: I personally reviewed and interpreted this imaging study as follows: My Impression: Chest x-ray negative. Airway clear. No pneumothorax. No consolidation. No cardiomegaly or cephalization.. No free air under the diaphragm. No fractures of the skeletal structures. Radiologist's Impression: Chest X-Ray 08/17/24 12:38 XR chest 1V portable CLINICAL HISTORY: Sepsis COMPARISON STUDY: 11/30/2020 FINDINGS: Heart size and pulmonary vasculature are normal. No effusion, consolidation, or pneumothorax. IMPRESSION: No acute findings. ACT 112: Negative or not required by law. Electronically signed by: Elpidio Ramirez M.D. 08/17/2024 2:03 PM Chest CTA 08/17/24 12:39 CT angio chest PE protocol CT DOSE: 828.91 mGy.cm HISTORY: ro pe. TECHNIQUE: Multiple CTA images of the chest were obtained after the intravenous administration of 112 ml Optiray. Coronal and sagittal MIPS were obtained from the axial data set and were submitted for review. All measurements were obtained according to NASCET criteria. A dose lowering technique was utilized adhering to the principles of ALARA. COMPARISON STUDY: None FINDINGS: There are mild airway secretions. There is no pulmonary consolidation or pleural effusion. No pneumothorax. No enlarged adenopathy. Retroesophageal right subclavian artery is present, anatomic variant. No pericardial effusion. No thoracic aortic dissection or aneurysm. No pulmonary embolism. There is mild fatty liver. There are mild thoracic spine degenerative changes and minimal scoliosis. IMPRESSION: No pulmonary embolism or pneumonia. Otherwise as described. ACT 112: Negative or not required by law. The above report was generated using voice recognition software. It may contain grammatical, syntax or spelling errors. Electronically signed by: Elpidio Ramirez M.D. 08/17/2024 2:07 PM ECG Data Attestation: I personally reviewed and interpreted this ECG as follows: Additional Comments: EKG #1 at 1223: Atrial fibrillation with rate of 146. QRS [address] elevation or ST depression. PVCs present. EKG #2 at 1253 status post initiation of IV fluid boluses: Atrial fibrillation with a rate of 114. QRS [address] elevation or ST depression. PVCs present. MDM Narrative 1236: The patient was evaluated in room C8. A complete history and physical exam was performed Cardiac monitoring: An order was placed for continuous cardiac monitoring. The monitor shows a rate of 120-160 with atrial fibrilation rhythm interpreted by me Patient has no history of atrial fibrillation. Large-bore IV access was obtained and IV fluids started on the patient. As the patient was receiving IV fluids his ventricular rate improved. Thought the patient could be in A-fib secondary to electrolyte imbalance and or volume depletion. Pressure was mildly low we will hold off on any inotropic medications at this time. 1255: Vital signs improving. Ventricular rate improving with IV fluids. Patient continues to be in A-fib but his ventricular rate is now 100-120. 1425: Vital signs stable. Patient remains in A-fib but his ventricular rate is improved after IV fluids. Labs are significant for a potassium of 2.5. Magnesium was within normal limits. Patient does have elevated liver function test. No pain on palpation of the abdomen. BioFire negative. [facility] Potassium repletion started in the emergency department. Impression & Plan Acute hypokalemia, Atrial fibrillation with rapid ventricular response, Transaminitis Discharge Plan Visit Data Chief Complaint: Illness Stated Complaint: LIGHTHEADED, VOMITING, DIARHEA, WEAKNESS, TRMEMORS ED Provider: Ilir Dean Discharge Problem: Acute hypokalemia, Atrial fibrillation with rapid ventricular response, Transaminitis Patient Disposition: Admitted As Inpatient Condition: Serious Forms Stand Alone Forms: My [facility] Prescriptions Prescriptions: No Action amoxicillin 500 mg capsule 2,000 mg PO DIRECTED PRN (Reason: PRIOR TO DENTAL PROCEDURES) atorvastatin 20 mg tablet 20 mg PO QDL omeprazole 20 mg capsule,delayed release(DR/EC) 20 mg PO DAILYBB cetirizine [Zyrtec] 10 mg Tablet 10 mg PO QDL fluticasone propionate 50 mcg/actuation [place],Suspension 2 spray INTRANASAL QDL acetaminophen 500 mg Capsule 1,000 mg PO DIRECTED PRN (Reason: Pain) ascorbic acid (vitamin C) [Vitamin C] 1,000 mg Tablet 1,000 mg PO QDL aspirin 81 mg Tablet,Delayed Release (Dr/Ec) 81 mg PO QDL ginkgo biloba 40 mg Tablet 40 mg PO QDL Rx Instructions: give with meal/snack fluticasone propion-salmeterol [Wixela Inhub] 100-50 mcg/dose blister with device 1 inh INHALATION BID albuterol sulfate 90 mcg/actuation HFA aerosol inhaler 1 - 2 puff INHALATION DIRECTED PRN (Reason: Shortness Of Breath Or Wheezing) cefdinir 300 mg capsule 300 mg PO BID Rx Instructions: STARTED 08/12/24 FOR 10 DAYS vitamin B complex [Super B Complex] Capsule 1 cap PO QDL escitalopram oxalate 10 mg tablet 10 mg PO QDL omega-3 fatty acids 1,250 mg Capsule 1,250 mg PO QDL cholecalciferol (vitamin D3) [Vitamin D3] 125 mcg (5,000 unit) Tablet 125 mcg PO QDL melatonin 10 mg Tablet 10 mg PO HS PRN (Reason: Sleep) Osteo Bi-Flex Triple Strength 750 mg-644 mg- 30 mg-1 mg Tablet 1 tab PO QDL magnesium oxide 400 mg magnesium Tablet 400 mg PO QDL Referrals Referrals: Daisha Case DO [Primary Care Provider] -
[2024-08-17] MEDS ORDERED: ACETAMINOPHEN 325 MG TAB PO PRN (17:06)
[2024-08-17] MEDS ORDERED: METOPROLOL TARTRATE 1 MG/ML VIAL IV PRN (17:06)
[2024-08-17] MEDS ORDERED: ONDANSETRON INJ 2 MG/ML 2 ML VIAL IV PRN (17:06)
[2024-08-17] MEDS ORDERED: MELATONIN 3 MG TAB PO PRN (17:06)
[2024-08-17] MEDS: LACTATED RINGER'S 1,000 ML IV SCH (17:20)
[2024-08-17] MEDS: ASPIRIN 81 MG CHEW PO STA (17:20)
[2024-08-17] MEDS: MAGNESIUM SULFATE / D5W 1 GM/100 ML BAG IV ONE (17:28)
[2024-08-17 17:29] LABS: Appearance Urine Clear (Clear); Bacteria Urine Automated None Seen (None Seen); Bilirubin Urine Negative (Negative); Blood Urine Trace (Negative); Color Urine Yellow; Epithelial Cell Urine Auto 0-2 /hpf (0-2); Glucose Urine UA Negative (Negative); Ketones Urine Trace (Negative); Leukocyte Esterase Urine Negative (Negative); Nitrite Urine Negative (Negative); Protein Urine Trace (Negative); Specific Gravity Urine > 1.045 (1.000-1.030); Urobilinogen Urine Negative (Negative); WBC Urine Automated 0-5 /hpf (0-5)
--- NOTE | 2024-08-17 18:35 | Ultrasound Report ---
EXAM: US gallbladder CLINICAL HISTORY: Eval for cholecystitis. TECHNIQUE: Real-time ultrasound examination of the right upper quadrant was performed with attention to the Gallbladder using grayscale and duplex. COMPARISON: None. FINDINGS: Liver: Enlarged, measuring approximately 21.1 cm in craniocaudal dimension. Diffusely increased echogenicity, compatible with hepatic steatosis (fatty liver). A simple hepatic cyst is noted in the right lobe, measuring 2.5 × 2.9 cm. Main portal vein appears patent with normal flow (Doppler not specifically stated). Gallbladder: Adequately distended. Wall thickness is normal, measuring 0.2 cm. No gallstones or sludge identified. A small echogenic focus adherent to the gallbladder wall, measuring 0.24 cm, likely represents a small polyp. No pericholecystic fluid. Guerra sign is negative on ultrasound. Common Bile Duct (CBD): Measures between 0.5?0.65 cm, within normal limits for age. Pancreas: Partially visualized; limited by overlying bowel gas. The visualized portion shows homogeneous echotexture. Main pancreatic duct measures approximately 0.15 cm, within normal limits. Right Kidney: Measures 12 × 5.1 × 6.1 cm; normal in size. Normal cortical echogenicity. No evidence of hydronephrosis, renal mass, or nephrolithiasis. IMPRESSION: 1. No sonographic evidence of acute cholecystitis. No gallstones or pericholecystic fluid. 2. Small gallbladder polyp measuring 0.24 cm. Typically benign when 1 cm, but follow-up may be considered. 3. Hepatomegaly with diffuse fatty liver (hepatic steatosis). 4. Simple hepatic cyst in the right lobe measuring 2.9 cm. No features concerning for complexity or malignancy. 5. Normal-appearing right kidney and normal caliber common bile duct. 6. Limited visualization of pancreas due to bowel gas, but no abnormality identified in the visualized portion. 7. Clinical correlation is suggested. Electronically signed by Gume Figueroa 08-17-2024 6:35 PM
[2024-08-18] MEDS: PANTOprazole 40 MG TAB PO SCH (06:09)
[2024-08-18] MEDS: IBUPROFEN 200 MG TAB PO STA (06:30)
[2024-08-18 07:11] LABS: Hematocrit (blood only) 35.3 % (42.0-52.0); Hemoglobin 12.3 g/dl (14.0-18.0); Mean Corpuscular Hemoglobin 31.5 pg (25.0-34.0); Mean Corpuscular Hgb Conc 34.8 g/dL (32.0-36.0); Mean Corpuscular Volume 90.5 fL (80.0-100.0); Mean Platelet Volume 10.6 fL (9.4-12.4); Platelet Count 190 K/uL (130-400); RDW Coefficient of Variation 12.6 % (11.5-14.5); RDW Standard Deviation 41.6 fL (36.4-46.3); White Blood Count 7.29 K/ul (4.8-10.8)
[2024-08-18 07:35] LABS: Albumin Globulin Ratio 1.4 (0.9-2); BUN Creatinine Ratio 13.6 (10-20); Bilirubin,Total 0.4 mg/dl (0.2-1.0); Calcium 8.1 mg/dl (8.6-10.3); Creatinine Clr Calc Pharmacy 121.5 ml/min; Globulin 2.4 gm/dl (2.5-4.0); Magnesium 2.2 mg/dl (1.7-2.4); Potassium 2.7 mmol/L (3.5-5.1); Total Protein 5.7 gm/dl (6.0-8.3)
[2024-08-18 07:45] LABS: Troponin I High Sensitivity 6.2 pg/ml (0-20)
[2024-08-18] MEDS: MAGNESIUM OXIDE 400 MG TAB PO SCH (08:21)
[2024-08-18] MEDS: POTASSIUM CHLORIDE CRTAB 20 MEQ TABCR PO SCH ×2 (08:21→15:28)
[2024-08-18] MEDS: FLUTICASONE/VILANTEROL 100/25MCG 14 PUFFS/INHALER INH SCH (08:22)
[2024-08-18] MEDS: METOPROLOL TARTRATE 25 MG TAB PO SCH ×2 (08:31→20:51)
[2024-08-18] MEDS: POTASSIUM CHLORIDE / WTR 10 MEQ/100 ML PLCT IV SCH (08:34)
[2024-08-18] MEDS: LOPERAMIDE HCL 2 MG CAP PO STA (09:02)
--- NOTE | 2024-08-18 10:14 | XCELERA ---
[id number]
--- NOTE | 2024-08-18 11:55 | Electrocardiogram Report ---
Test Reason : Blood Pressure : */* mmHG Vent. Rate : 146 BPM Atrial Rate : * BPM P-R Int : * ms QRS Dur : 74 ms QT Int : 310 ms P-R-T Axes : * 52 8 degrees QTcB Int : 483 ms Atrial fibrillation with rapid ventricular response with premature ventricular or aberrantly conducte d complexes Nonspecific ST abnormality Abnormal ECG When compared with ECG of 20-Mar-2022 02:37, Atrial fibrillation has replaced Sinus rhythm Vent. rate has increased by [address] depression has replaced ST elevation in Anterior leads Nonspecific T wave abnormality now evident in Anterior leads Confirmed by Renny Gaona ([id number]) on 08/18/2024 11:55:01 AM Referred By: Confirmed By: Renny Gaona
[2024-08-18] MEDS: FLUTICASONE PROPIONATE NA SPR 16 GM BTL SCH (12:04)
[2024-08-18] MEDS: ESCITALOPRAM OXALATE 10 MG TAB PO SCH (12:04)
[2024-08-18] MEDS: ATORVASTATIN 20 MG TAB PO SCH (12:05)
[2024-08-18] MEDS: CETIRIZINE HCL 10 MG TABLET PO SCH (12:05)
[2024-08-18] MEDS: ASPIRIN 81 MG ECTAB PO SCH (12:05)
[2024-08-18] MEDS: METOPROLOL TARTRATE 25 MG TAB PO ONE (13:17)
[2024-08-18] MEDS: PSYLLIUM HUSK 4GM PACKET PO ONE (13:18)
[2024-08-18] MEDS: LOPERAMIDE HCL 2 MG CAP PO PRN (13:48)
--- NOTE | 2024-08-18 14:34 | Hospitalist Progress Note ---
Date of Service August 18, 2024 Assessment & Plan (1) Atrial fibrillation with rapid ventricular response: (2) Transaminitis: (3) Depression: Plan 64-year-old male presents with chills fevers nausea vomiting and shortness of breath. Not found of any acute infectious etiology at this time. But was found to be in atrial fibrillation rapid ventricular response. Clinically dehydrated and hypokalemic. Incidentally noted to have transaminitis on presentation #Atrial fibrillation rapid ventricular response. Patient with some reduction in heart rate control escalating metoprolol throughout the day potassium is stubbornly low due to increased stool output with negative infectious etiologies. Imodium and Metamucil are begun. Echocardiogram is unremarkable including normal atrial size, will begin Eliquis therapy was already educated on stroke risk with atrial fibrillation. TSH will be checked in the a.m. #Transaminitis, improving. Gallbladder ultrasound negative, stool BioFire negative #Depression patient will be continued on Lexapro therapy at this time DVT prevention will be SCDs with transition Eliquis in short order patient is a full code Admission and Anticipated Discharge Date Admission Date: August 17, 2024 Subjective Patient has no recurrence of symptoms today however his atrial fibrillation remains about 110-150 escalation of metoprolol as occurring throughout the day on 08/18 no other persistently hypokalemic to the diarrhea. Reportedly had previous workup by [facility] without an exact diagnosis Physical Exam Physical Exam: Irregularly irregular heartbeat lungs are clear Abdomen with normal active bowel sounds soft nontender Results & Data Results & Data Vital Signs (Past 12 Hours) Vital Signs Temp Pulse Pulse Pulse Resp BP Pulse Ox 08/18/24 11:10 97.3 F L 110 H 18 118/75 95 08/18/24 08:09 157 H 08/18/24 07:13 102 H 08/18/24 07:04 97.9 F 87 18 111/73 98 08/18/24 03:07 98.1 F 92 H 18 94/60 L 98 O2 Del Method 08/18/24 11:10 Room Air 08/18/24 08:09 08/18/24 07:13 08/18/24 07:04 Room Air 08/18/24 03:07 Room Air Laboratory Results Reviewed CBC reviewed chemistry persistent severe hypokalemia with normal magnesium PG Care Time/CCT Total # of Minutes Spent Total Time Spent with Patient: Total time spent is greater than 50% in coordination of care (as documented) at patient's floor/unit and/or counseling patient: Coding Level of Care Code 05392 SUB INP/OBS CARE 350MIN Diagnoses Atrial fibrillation with rapid ventricular response I48.91 Transaminitis R74.01 Depression F32.9
[2024-08-18] MEDS: BISMUTH SUBSALICYLATE 262 MG CHEW PO ONE (17:26)
[2024-08-18] MEDS: APIXABAN 5 MG TABLET PO SCH (20:49)
[2024-08-18] MEDS: PSYLLIUM HUSK 4GM PACKET PO SCH (20:53)
[2024-08-18] MEDS: SACCHAROMYCES BOULARDII 250 MG CAP PO SCH (20:53)
[2024-08-18 21:57] LABS: A calco-baum cmplx NotReported Not Detected (NotDetected); Bact fragilis Not Reported Not Detected (NotDetected); Blood Culture Id Panel PCR Panel Negative (NotDetected); C auris Not Reported Not Detected (NotDetected); Calbicans Not Reported Not Detected (NotDetected); Candida glabrata Not Reported Not Detected (NotDetected); Candida krusei Not Reported Not Detected (NotDetected); Cneoformans/gatti Not Reported Not Detected (NotDetected); Cparapsilosis Not Reported Not Detected (NotDetected); Ctropicalis Not Reported Not Detected (NotDetected); E cloacae compx Not Reported Not Detected (NotDetected); Efaecalis Not Reported Not Detected (NotDetected); Efaecium Not Reported Not Detected (NotDetected); Enterobacterales Not Reported Not Detected (NotDetected); Escherichia coli Not Reported Not Detected (NotDetected); H influenzae Not Reported Not Detected (NotDetected); K aerogenes Not Reported Not Detected (NotDetected); Koxytoca Not Reported Not Detected (NotDetected); Kpneumoniae grp Not Reported Not Detected (NotDetected); Lmonocyt Not Reported Not Detected (NotDetected); N meningitidis Not Reported Not Detected (NotDetected); P aeruginosa Not Reported Not Detected (NotDetected); Proteus spp Not Reported Not Detected (NotDetected); Salmonella spp Not Reported Not Detected (NotDetected); Staph lugdunensis Not Reported Not Detected (NotDetected); Staph spp. Not Reported Not Detected (NotDetected); Staphaureus Not Reported Not Detected (NotDetected); Staphepi Not Reported Not Detected (NotDetected); Stenmaltophilia Not Reported Not Detected (NotDetected); Strep agal(GrpB) Not Reported Not Detected (NotDetected); Strep pneum Not Reported Not Detected (NotDetected); Strep pyog (GrpA) Not Reported Not Detected (NotDetected); Strep spp Not Reported Not Detected (NotDetected)
[2024-08-19 06:08] LABS: Hematocrit (blood only) 33.6 % (42.0-52.0); Hemoglobin 11.6 g/dl (14.0-18.0); Mean Corpuscular Hemoglobin 31.8 pg (25.0-34.0); Mean Corpuscular Hgb Conc 34.5 g/dL (32.0-36.0); Mean Corpuscular Volume 92.1 fL (80.0-100.0); Mean Platelet Volume 10.1 fL (9.4-12.4); Platelet Count 196 K/uL (130-400); RDW Coefficient of Variation 12.7 % (11.5-14.5); RDW Standard Deviation 42.6 fL (36.4-46.3); Red Blood Count 3.65 M/uL (4.70-6.10); White Blood Count 5.95 K/ul (4.8-10.8)
[2024-08-19 06:42] LABS: Albumin Globulin Ratio 1.3 (0.9-2); BUN Creatinine Ratio 10.7 (10-20); Bilirubin,Total 0.4 mg/dl (0.2-1.0); Calcium 8.2 mg/dl (8.6-10.3); Creatinine Clr Calc Pharmacy 107.1 ml/min; Globulin 2.4 gm/dl (2.5-4.0); Magnesium 2.1 mg/dl (1.7-2.4); Potassium 3.3 mmol/L (3.5-5.1); Total Protein 5.6 gm/dl (6.0-8.3)
[2024-08-19 06:59] LABS: Thyroid Stimulating Hormone 1.732 uIu/ml (0.300-4.500)
[2024-08-19] MEDS: METOPROLOL TARTRATE 50 MG TAB PO SCH (09:38)
[2024-08-19] MEDS: PSYLLIUM HUSK 4GM PACKET PO SCH (09:38)
[2024-08-19] MEDS: BISMUTH SUBSALICYLATE 262 MG CHEW PO SCH (09:42)
[2024-08-19] MEDS: POTASSIUM CHLORIDE / WTR 10 MEQ/100 ML PLCT IV SCH (09:52)
--- NOTE | 2024-08-19 16:02 | Cardiology Consultation ---
Date of Consultation August 19, 2024 Assessment & Plan (1) Atrial fibrillation with rapid ventricular response: Plan 1. Atrial fibrillation: Unclear duration but likely acute. He did not seem to have any warnings or alerts from his Apple Watch. The Apple Watch seems to be quite good at sensing atrial fibrillation. I suspect the development of atrial fibrillation was related to his volume and electrolyte changes. He does not seem to have many other risk factors for atrial fibrillation. He did not describe a history consistent with obstructive sleep apnea. No known history of high blood pressure. No valvular heart disease. No structural heart disease, thyroid studies were normal. Not obese. He does endorse moderate alcohol intake. Somewhere between 2 and 4 drinks daily. Reducing alcohol intake may reduce his chance of recurrent atrial fibrillation. Fortunately, few symptoms associated with the arrhythmia. Hard to tell with some of the symptoms leading up to his admission were related, but I think they were more specific to his dehydration. Rates have been adequate if not optimal since starting metoprolol. Metoprolol dose being increased slowly. Patient has been started on apixaban.[id number] or appears to be 1 (age). However, I think anticoagulation at this point is reasonable given the potential need for cardioversion at some point. Hopefully as his clinical condition including volume and electrolytes improved he will convert to sinus on his own. Otherwise I would continue increasing metoprolol as tolerated for better rate control. I will continue apixaban at 5 mg twice daily for now. History of Present Illness Reason for Consultation: Atrial fibrillation Requesting Physician: Rashad Attending Physician: Derrick Solorzano MD History of Present Illness The patient is a 64-year-old gentleman without a known history of cardiac disease who presents to the hospital due to weakness and diarrhea. The patient states that his symptoms began a couple weeks prior. Became somewhat progressive over the course of a few weeks and included significant gastrointestinal upset. He became weak, had difficulty performing usual activities and had an element of dizziness. Not generally aware of palpitations or elevated heart rate. He does have an Apple Watch at home but did not report any specific warnings or noticed any high heart rates. His symptoms began with the sensation of some neck and upper back pain. He also had fevers around that time. The symptoms seem to have improved. At the time admission he was discovered to have a tachycardia and be in atrial fibrillation. He was felt to be significantly dehydrated and underwent fluid resuscitation. Metoprolol was also initiated. Currently he is feeling better. Still some gastrointestinal symptoms but mild. He has been ambulatory around his room with minimal difficulty. No overt dizziness or lightheadedness. Still no sensation of a rapid heartbeat or an irregularity in his heartbeat. Allergies Allergy/AdvReac Type Severity Reaction Status Date / Time No Known Allergies Allergy Verified 08/17/24 15:12 Home Medications Medication Instructions Recorded Confirmed Type acetaminophen 500 mg capsule 1,000 mg PO DIRECTED PRN Pain 11/24/20 08/17/24 History cetirizine 10 mg tablet (Zyrtec) 10 mg PO QDL 11/24/20 08/17/24 History fluticasone propionate 50 2 spray intranasal QDL 11/24/20 08/17/24 History mcg/actuation nasal spray,suspension amoxicillin 500 mg capsule 2,000 mg PO DIRECTED PRN PRIOR 03/20/22 08/17/24 History TO DENTAL PROCEDURES atorvastatin 20 mg tablet 20 mg PO QDL 03/20/22 08/17/24 History omeprazole 20 mg capsule,delayed 20 mg PO DAILYBB 03/20/22 08/17/24 History release albuterol sulfate 90 mcg/actuation 1 - 2 puff inhalation DIRECTED 08/17/24 08/17/24 History aerosol inhaler PRN Shortness Of Breath Or Wheezing ascorbic acid (vitamin C) 1,000 mg 1,000 mg PO QDL 08/17/24 08/17/24 History tablet (Vitamin C) aspirin 81 mg tablet,delayed 81 mg PO QDL 08/17/24 08/17/24 History release cefdinir 300 mg capsule 300 mg PO BID 08/17/24 08/17/24 History cholecalciferol (vitamin D3) 125 125 mcg PO QDL 08/17/24 08/17/24 History mcg (5,000 unit) tablet (Vitamin D3) escitalopram oxalate 10 mg tablet 10 mg PO QDL 08/17/24 08/17/24 History fluticasone 100 mcg-salmeterol 50 1 inh inhalation BID 08/17/24 08/17/24 History mcg/dose blistr powdr for inhalation (Wixela Inhub) ginkgo biloba 40 mg tablet 40 mg PO QDL 08/17/24 08/17/24 History glucosamine 750 rq-[id number]-gsk 1 tab PO QDL 08/17/24 08/17/24 History no1 644 mg-C 30 mg-cinthya 1 mg tablet (Osteo Bi-Flex Triple Strength) magnesium oxide 400 mg PO QDL 08/17/24 08/17/24 History melatonin 10 mg tablet 10 mg PO HS PRN Sleep 08/17/24 08/17/24 History omega-3 fatty acids 1,250 mg 1,250 mg PO QDL 08/17/24 08/17/24 History capsule vitamin B complex 1 cap PO QDL 08/17/24 08/17/24 History Patient History Medical History Anxiety Depression GERD (gastroesophageal reflux disease) Well controlled and stable Hyperlipidemia Surgical History History of repair of rotator cuff RIGHT H/O hand surgery THUMB History of carpal tunnel release RIGHT Left elbow fracture ORIF History of colonoscopy Family History Other Cancer No known health problems Social History Smoking Status: Former smoker Second Hand Exposure: No; Do You Dip or Chew Tobacco: No; Hx Alcohol Use: Yes Alcohol type: beer Hx Substance Use: No Preferred Language: Panamanian Communication Ability: Effective 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 Mood and affect appeared normal. He answered all questions appropriately. HEENT: Pupils are equal and reactive to light and accommodation. Extraocular movements are intact. The sclerae are anicteric. Neuro: Cranial nerves intact Lungs: Clear to auscultation bilaterally. He has good air movement without use of accessory muscles. Crackles at the bases bilaterally. Cardiac: Heart demonstrates an irregular rhythm but normal rate. Normal S1 and S2. No murmurs on examination. Pulses: The patient has palpable radial pulses bilaterally that are equal in intensity Extremities: There was no evidence of hypoperfusion. There is no cyanosis or clubbing. There is no edema. Skin: I did not appreciate any rashes on examination today. Results & Data Vital Signs (Past 12 Hours) Vital Signs Temp Pulse Pulse Resp BP Pulse Ox O2 Del Method 08/19/24 15:44 36.5 C 98 H 18 113/71 99 Room Air 08/19/24 10:59 36.6 C 84 18 104/79 98 Room Air 08/19/24 08:13 Room Air 08/19/24 08:00 87 08/19/24 07:49 36.8 C 88 16 111/72 97 Room Air Laboratory Results Abnormal Lab Results 08/17/24 08/19/24 12:50 05:47 WBC 5.95 RBC 3.65 L Hgb 11.6 L Hct 33.6 L MCV 92.1 MCH 31.8 MCHC 34.5 RDW Std Deviation 42.6 RDW Coeff of Cathleen 12.7 Plt Count 196 MPV 10.1 Sodium 142 Potassium 3.3 L D Chloride 110 H Carbon Dioxide 26 Anion Gap 6 BUN 8 Creatinine 0.75 Est Cr Clr Drug Dosing 107.1 eGFR 99.53 BUN/Creatinine Ratio 10.7 Glucose 104 H Calcium 8.2 L Magnesium 2.1 Total Bilirubin 0.4 AST 45 H ALT 70 H Alkaline Phosphatase 98 Total Protein 5.6 L Albumin 3.2 L Globulin 2.4 L Albumin/Globulin Ratio 1.3 TSH 1.732 Bld Cult ID Panel PCR PCR Panel Negative Diagnostic Findings Echocardiogram 08/18/2024: Normal LV and RV systolic function. No significant valvular heart disease. Essentially normal echocardiogram. Chest CTA performed at the time admission that revealed evidence of pulmonary embolism or pneumonia. ECG Additional Comments: EKG obtained at time admission revealed atrial fibrillation with rapid ventricular rate and some aberrant conduction. PG Care Time/CCT Total # of Minutes Spent Total Time Spent with Patient: Total time spent is greater than 50% in coordination of care (as documented) at patient's floor/unit and/or counseling patient: Coding Level of Care Code 87231 INT INP/OBS CARE 3/75MIN Diagnoses Atrial fibrillation with rapid ventricular response I48.91
--- NOTE | 2024-08-19 18:27 | Hospitalist Progress Note ---
Date of Service August 19, 2024 Assessment & Plan (1) Atrial fibrillation with rapid ventricular response: (2) Transaminitis: (3) Depression: Plan 64-year-old male presents with chills fevers nausea vomiting and shortness of breath. Not found of any acute infectious etiology at this time. But was found to be in atrial fibrillation rapid ventricular response. Clinically dehydrated and hypokalemic. Incidentally noted to have transaminitis on presentation #Atrial fibrillation rapid ventricular response. Continue to support potassium reducing diarrheal output as best we can, since hypokalemia is likely contributing to his A-fib will likely need outpatient referral to GI to [facility] if there is another etiology for his diarrhea. Echocardiogram is unrevealing showing normal EF and normal atria size.. Metoprolol will be given tartrate twice daily a dose was increased to 50 twice daily Eliquis therapy was already educated on stroke risk with atrial fibrillation #Transaminitis, looking for source of the patient's recent fever and illness without evidence of pulmonary changes negative ultrasound of his right upper quadrant given stool BioFire and C. difficile are neck #Depression patient will be continued on Lexapro therapy at this time DVT prevention will be SCDs with transition Eliquis in short order patient is a full code Admission and Anticipated Discharge Date Admission Date: August 17, 2024 Subjective Patient has no recurrence of symptoms today however his atrial fibrillation remains about 110-150 escalation of metoprolol as occurring throughout the day on 08/19 and evaluation by cardiology with concurrence of the dose of 50 twice daily. No other persistently hypokalemic to the diarrhea. Reportedly had previous workup by [facility] without an exact diagnosis patient cannot afford budesonide which was initially prescribed for him he has had some improvement with bismuth increasing fiber and Imodium Physical Exam Physical Exam: Irregularly irregular heartbeat lungs are clear Abdomen with normal active bowel sounds soft nontender Results & Data Results & Data Vital Signs (Past 12 Hours) Vital Signs Temp Pulse Pulse Resp BP Pulse Ox O2 Del Method 08/19/24 16:22 98 H 08/19/24 15:44 97.7 F 98 H 18 113/71 99 Room Air 08/19/24 10:59 97.9 F 84 18 104/79 98 Room Air 08/19/24 08:13 Room Air 08/19/24 08:00 87 08/19/24 07:49 98.2 F 88 16 111/72 97 Room Air Laboratory Results Reviewed CBC reviewed chemistry augmenting potassium magnesium replete PG Care Time/CCT Total # of Minutes Spent Total Time Spent with Patient: Total time spent is greater than 50% in coordination of care (as documented) at patient's floor/unit and/or counseling patient: Coding Level of Care Code 80214 SUB INP/OBS CARE 3/50MIN Diagnoses Atrial fibrillation with rapid ventricular response I48.91 Transaminitis R74.01 Depression F32.9
[2024-08-20 07:15] LABS: Hematocrit (blood only) 36.7 % (42.0-52.0); Hemoglobin 12.2 g/dl (14.0-18.0); Mean Corpuscular Hemoglobin 30.8 pg (25.0-34.0); Mean Corpuscular Hgb Conc 33.2 g/dL (32.0-36.0); Mean Corpuscular Volume 92.7 fL (80.0-100.0); Mean Platelet Volume 10.3 fL (9.4-12.4); Platelet Count 241 K/uL (130-400); RDW Coefficient of Variation 12.8 % (11.5-14.5); RDW Standard Deviation 43.5 fL (36.4-46.3); Red Blood Count 3.96 M/uL (4.70-6.10); White Blood Count 6.78 K/ul (4.8-10.8)
[2024-08-20 07:30] VITALS: RESP 18; O2SAT 98
[2024-08-20 07:45] LABS: Albumin Globulin Ratio 1.4 (0.9-2); BUN Creatinine Ratio 8.5 (10-20); Bilirubin,Total 0.5 mg/dl (0.2-1.0); Calcium 8.4 mg/dl (8.6-10.3); Creatinine Clr Calc Pharmacy 113.6 ml/min; Globulin 2.4 gm/dl (2.5-4.0); Magnesium 2.1 mg/dl (1.7-2.4); Potassium 3.6 mmol/L (3.5-5.1); Total Protein 5.8 gm/dl (6.0-8.3)
[2024-08-20 11:04] VITALS: BP 110/80; TEMP 97.9
[2024-08-20] MEDS: METOPROLOL TARTRATE 25 MG TAB PO STA (12:36)
[2024-08-20 14:30] VITALS: PULSE 94
--- NOTE | 2024-08-20 15:13 | Discharge Summary ---
Discharge Summary Date of Service date of admission - August 17, 2024 date of discharge - August 20, 2024 Principal Dx & Hospital Course #1 = Principal Diagnosis (1) Atrial fibrillation with rapid ventricular response: (2) Transaminitis: (3) Acute hypokalemia: (4) Microscopic colitis: (5) Hyperlipidemia: (6) GERD (gastroesophageal reflux disease): (7) Gall bladder polyp: (8) Hepatic cyst: (9) Fatty liver: Plan 64-year-old male presented with cough and intermittent fevers for the last 7+ days. Was on outpatient antibiotics (cefdinir) but was not getting any better. Found to be in atrial fibrillation with rapid ventricular response and was clinically dehydrated on presentation. Heart rate did improve with hydration. He was also markedly hypokalemic. #atrial fibrillation with RVR - -possibly precipitated by severe hypokalemia as K was 2.6 at time of admission -mag level was wnl -TSH was wnl -echo with normal EF and normal valve function -fortunately no evidence of decompensated CHF due to his a.fib -was seen by [facility], Dr Renny Gaona -started on metoprolol tartrate for rate control -ultimately titrated to 75mg twice daily -rates were about 120 with walking with this dose -rates were about 85-100 at rest with this dose -initiated on Eliquis 5mg BID for anticoagulation -if the patient remains on anticoagulation long-term a decision will have to be made about keeping Eliquis or transitioning to coumadin as the monthly cost of Eliquis was >$500 -patient plans to call his insurance to find out if the cost quoted to our team is indeed accurate -he was asked to check his HRs at home & keep a log of such -he will [facility] within 3-4 weeks of discharge to check the status of his a.fib #hypokalemia - -presenting K level of 2.6 -received IV/PO replacement -level normalized to 3.6 -suspect low K was due to diarrhea as he reports a recent worsening of such #recent fevers, cough, GI symptoms - -exact etiology uncertain but resolved -blood and urine cx's were negative (1 out of 4 blood culture bottles + for micrococcus but likely a contaminant) -CTA chest negative for PE, negative for pneumonia -lyme screen negative -babesia & anaplasmosis DNA tests negative -respiratory BioFire panel negative -stool BioFire panel negative -c diff negative -gall bladder ultrasound negative for acute cholecystitis -patient had NO fever while hospitalized and had a normal wbc count while here -by time of discharge he had no lingering infectious symptoms and was feeling well thus he was asked to not take any further antibiotics #transaminitis - -AST/ALT were elevated at ER presentation but normalized prior to discharge home -alk phos was scantly elevated but also normalized -etiology uncertain -no acute findings on RUQ u/s; no evidence of acute cholecystitis -tick disease testing was negative -due to recent cephalosporin usage? -due to whatever pathogen had caused the recent fevers/cough? -either way all LFTs were normal by discharge #acute on chronic diarrhea - -patient was diagnosed via biopsy with microscopic colitis in 2020 via the [facility] system -previously followed by [facility] -for a period of time he took Budesonide with improvement in his diarrhea -he has not taken the Budesonide in several years -stool BioFire was negative -stool C diff was negative -advised that he follow-up with [facility] for ongoing management; need for repeat colonoscopy? trial of empiric Rx for microscopic colitis with steroids again? -while awaiting follow-up with GI he can take loperamide prn #abnormal RUQ u/s - -patient had incidental findings of fatty liver, a gall bladder polyp, and a probable hepatic cyst on this ultrasound -follow-up with [facility] for such Notes For Next Care Provider Will have follow-up with [facility] within 3-4 weeks of discharge Decision will have to be made about long-term anticoagulation as a pharmacy check revealed that a 30-day supply of Eliquis would be >$500/month He did state he would be willing to take coumadin if needed Medication Changes From Visit 1. Eliquis 5mg BID 2. Metoprolol tartrate 75mg BID 3. STOP fish oil supplementation due to adding Eliquis 4. HOLD aspirin 5. stop cefdinir Admission HPI Per Admitting Provider 64-year-old male presents via private vehicle for cough and intermittent fevers for the last 9 days or so. Was on outpatient antibiotics not getting any better, found to be in atrial fibrillation rapid ventricular response was clinically dehydrated on presentation and heart rate did improve with hydration he is markedly hypokalemic. He does not have a history of an irregular heartbeat. He has not had significant diarrhea to explain potassium losses he states that his fevers eventually quiescent as an outpatient he did take cefdinir without much help in his opinion Evaluation in the ER includes a negative respiratory BioFire negative chest imaging no leukocytosis no procalcitonin. Blood cultures were obtained and pending. Stool BioFire was obtained and pending. (She has no history of frequent loose stools) he is not in any heart failure with regard to his A-fib and has a negative troponin Discharge Exam gen - NAD, looks well mouth - MMM neck - no JVD heart - irregularly irregular, HR about 100, s1 s2, no murmur lungs - CTA b/l abd - soft NT ND BS+ ext - no edema, pulses b/l feet 2+ psych - a/o x 3 Discharge Plan Discharge Items Patient Disposition: Home - Self-Care Reason For Visit: New onset atrial fibrillation; fever, diarrhea Discharge Diagnosis: 1. new onset atrial fibrillation 2. hypokalemia (low potassium) - resolved; likely due to diarrhea 3. chronic diarrhea with prior history of microscopic colitis 4. nausea, vomiting, fever - uncertain cause - no specific infection found 5. abnormal liver function tests - improving 6. tiny gall bladder polyp (typically benign) 7. liver cyst (typically benign) 8. fatty liver Activity: As commented below Activity Comment: recommend avoiding strenuous activities until seen by your family doctor Exercise/Sports: Wait until after follow-up appointment Driving/Machine Use: Resume 1 day after discharge Non-emergency contact: Primary Care Provider and Federal Law Clerk Call non-emergency contact if: you have any medication questions and your symptoms worsen Follow-up/Referrals: Renny Gaona MD [Physician] - (The Cardiology office will call you to schedule a follow up appointment.) Daisha Case DO [Primary Care Provider] - (Date & Time 08/25/2024 10:00 AM Provider: Daisha Case DO Family Practice [facility]) Diet: Heart Healthy Addtl Attending Provider Instructions: Mr Guerrero, Antonio were hospitalized due to low potassium, recent fevers/vomiting/nausea/diarrhea, and newly discovered atrial fibrillation ("a.fib"). Your potassium level normalized with supplementation. A.fib was treated with blood thinning medicine (Eliquis) and medicines to slow the heart rate down (metoprolol). Echocardiogram showed normal heart function and normal heart valves. Dr Renny Gaona from [facility] saw you in consult and will continue to follow the a.fib outside of the hospital. We do not know how long you were in a.fib upon presentation to [facility], but the low potassium may have contributed to its development. In addition we performed various tests to determine the cause of your fevers, diarrhea, etc. Respiratory BioFire testing was fully negative; this checked you for about a dozen different viruses & some bacteria. Stool BioFire testing was fully negative; we did not find any infection in your stool. C diff testing was negative. This is another type of bacterial infection that causes diarrhea. Chest x-ray did not show pneumonia. Blood cultures did not show any infection in the bloodstream. Lyme disease testing was negative. Tests for other tick-borne diseases were negative. The only test pending is a test for anaplasmosis (tick-borne disease). Although your liver function tests were mildly elevated they have improved during your stay without any specific treatment. The exact cause of the abnormal tests was uncertain. You had a small cyst in the liver, a tiny gall bladder polyp, and fatty liver on gall bladder/liver ultrasound. None of these things requires any specific treatment at this time. See handout on fatty liver (you likely do not have REAL which is a more advanced type of liver disease). Recommendations - 1. Blood thinner (anticoagulant) - Eliquis 5mg twice daily. Take your first dose TONIGHT. -do not drink alcohol with Eliquis -do not take [id number]-uxjflsq anti-inflammatory medicines with Eliquis (motrin, ibuprofen, aleve, naprosyn) -HOLD your aspirin for now 2. In one month a decision will have to be made about whether to stay on Eliquis or switch to coumadin. 3. Metoprolol for the atrial fibrillation - take 75mg twice daily, first dose TONIGHT. 4. Check your heart rate at least twice daily and keep a log of those readings for your outpatient providers. You can use your [employer] Watch, a blood pressure machine that shows the pulse rate, etc. 5. Please talk to your family doctor about getting a referral back to [facility] for the chronic diarrhea. You can take [id number]-[id number] loperamide as needed for the diarrhea. 6. STOP your fish oil supplement. 7. STOP the recent cefdinir antibiotic. Follow-up - see separate section Return to [facility] if - -you feel dizzy or lightheaded -you have bleeding from any location as listed below -you have shortness of breath or chest pains -you have concerns that your a.fib is uncontrolled (your pulse rate is too fast) -any other concerns It was our pleasure to care for you! Addtl Wrapper Sorter Provider Instructions: Anticoagulant (Blood Thinner) Medication Instructions: Your atrial fibrillation condition is typically treated with an anticoagulant. Anticoagulants will thin your blood to help prevent clot formation in your heart. * You should take your medication exactly as directed. * Never skip a dose. * Never take a double dose. If you miss a dose, take it as soon as you remember. Call your Primary Care doctor if you experience any of the following: * Chest Pain * Sudden Shortness of Breath * Rapid or pounding heart beat * Fainting * Dizziness * Cough with blood or bloody sputum * Sweating more than normal * Bruises * Heavy or uncontrolled bleeding * Blood in your urine, stool or vomit * Black or tarry stools * Heavy nose bleeding Caring for Your Self at Home: * When shaving please use an electric shaver rather than a traditional razor (less risk of bleeding with electric shaver) Pending Studies at Discharge: Yes Studies:: Anaplasmosis test (tick-borne disease test) Stand-Alone Forms: My [facility], Smoking Cessation Medications and DC Order Prescriptions: New Eliquis 5 mg Tablet 5 mg PO BID Qty: 60 5RF loperamide 2 mg Capsule 2 mg PO Q6H PRN (Reason: loose stool) Qty: 1 0RF Rx Instructions: purchase [id number]-[id number] metoprolol tartrate 25 mg tablet 75 mg PO BID Qty: 90 0RF Continued amoxicillin 500 mg capsule 2,000 mg PO DIRECTED PRN (Reason: PRIOR TO DENTAL PROCEDURES) atorvastatin 20 mg tablet 20 mg PO QDL omeprazole 20 mg capsule,delayed release(DR/EC) 20 mg PO DAILYBB cetirizine [Zyrtec] 10 mg Tablet 10 mg PO QDL fluticasone propionate 50 mcg/actuation [place],Suspension 2 spray INTRANASAL QDL acetaminophen 500 mg Capsule 1,000 mg PO DIRECTED PRN (Reason: Pain) ascorbic acid (vitamin C) [Vitamin C] 1,000 mg Tablet 1,000 mg PO QDL ginkgo biloba 40 mg Tablet 40 mg PO QDL Rx Instructions: give with meal/snack fluticasone propion-salmeterol [Wixela Inhub] 100-50 mcg/dose blister with device 1 inh INHALATION BID albuterol sulfate 90 mcg/actuation HFA aerosol inhaler 1 - 2 puff INHALATION DIRECTED PRN (Reason: Shortness Of Breath Or Wheezing) vitamin B complex Capsule 1 cap PO QDL escitalopram oxalate 10 mg tablet 10 mg PO QDL cholecalciferol (vitamin D3) [Vitamin D3] 125 mcg (5,000 unit) Tablet 125 mcg PO QDL melatonin 10 mg Tablet 10 mg PO HS PRN (Reason: Sleep) Osteo Bi-Flex Triple Strength 750 mg-644 mg- 30 mg-1 mg Tablet 1 tab PO QDL magnesium oxide 400 mg magnesium Tablet 400 mg PO QDL Held aspirin 81 mg Tablet,Delayed Release (Dr/Ec) 81 mg PO QDL Hold Instructions: hold for now since you are taking Eliquis Discontinued cefdinir 300 mg capsule 300 mg PO BID Rx Instructions: STARTED 08/12/24 FOR 10 DAYS omega-3 fatty acids 1,250 mg Capsule 1,250 mg PO QDL Discharge Orders: Discharge Order (Routine); Ordered 08/20/24 Ordered By: Gal Murdock/Other Patient Handouts: Apixaban Oral Tablet, NAFLD, AFib Preventing Stroke, ED Atrial Fibrillation Admission Data Admit Date/Time: 08/17/24 15:36 Attending Provider: Gal Blackwell Admit Provider: Derrick Solorzano Primary Care Provider: Daisha Case Other Providers: Renny Gaona Other Interventions: Discharge Summary Assessment (RN) Last Done: 08/20/24 14:28 Hospital Stay Data Consultations [facility] Procedures Performed Echocardiogram: EF 55-60%, normal LV wall motion, normal valve function, no pericardial disease Diagnostic Imagining Performed Chest X-Ray 08/17/24 12:38 XR chest 1V portable CLINICAL HISTORY: Sepsis COMPARISON STUDY: 11/30/2020 FINDINGS: Heart size and pulmonary vasculature are normal. No effusion, consolidation, or pneumothorax. IMPRESSION: No acute findings. ACT 112: Negative or not required by law. Electronically signed by: Elpidio Ramirez M.D. 08/17/2024 2:03 PM Chest CTA 08/17/24 12:39 CT angio chest PE protocol CT DOSE: 828.91 mGy.cm HISTORY: ro pe. TECHNIQUE: Multiple CTA images of the chest were obtained after the intravenous administration of 112 ml Optiray. Coronal and sagittal MIPS were obtained from the axial data set and were submitted for review. All measurements were obtained according to NASCET criteria. A dose lowering technique was utilized adhering to the principles of ALARA. COMPARISON STUDY: None FINDINGS: There are mild airway secretions. There is no pulmonary consolidation or pleural effusion. No pneumothorax. No enlarged adenopathy. Retroesophageal right subclavian artery is present, anatomic variant. No pericardial effusion. No thoracic aortic dissection or aneurysm. No pulmonary embolism. There is mild fatty liver. There are mild thoracic spine degenerative changes and minimal scoliosis. IMPRESSION: No pulmonary embolism or pneumonia. Otherwise as described. ACT 112: Negative or not required by law. The above report was generated using voice recognition software. It may contain grammatical, syntax or spelling errors. Electronically signed by: Elpidio Ramirez M.D. 08/17/2024 2:07 PM Gallbladder Ultrasound 08/17/24 15:36 EXAM: US gallbladder CLINICAL HISTORY: Eval for cholecystitis. TECHNIQUE: Real-time ultrasound examination of the right upper quadrant was performed with attention to the Gallbladder using grayscale and duplex. COMPARISON: None. FINDINGS: Liver: Enlarged, measuring approximately 21.1 cm in craniocaudal dimension. Diffusely increased echogenicity, compatible with hepatic steatosis (fatty liver). A simple hepatic cyst is noted in the right lobe, measuring 2.5 × 2.9 cm. Main portal vein appears patent with normal flow (Doppler not specifically stated). Gallbladder: Adequately distended. Wall thickness is normal, measuring 0.2 cm. No gallstones or sludge identified. A small echogenic focus adherent to the gallbladder wall, measuring 0.24 cm, likely represents a small polyp. No pericholecystic fluid. Guerra sign is negative on ultrasound. Common Bile Duct (CBD): Measures between 0.5?0.65 cm, within normal limits for age. Pancreas: Partially visualized; limited by overlying bowel gas. The visualized portion shows homogeneous echotexture. Main pancreatic duct measures approximately 0.15 cm, within normal limits. Right Kidney: Measures 12 × 5.1 × 6.1 cm; normal in size. Normal cortical echogenicity. No evidence of hydronephrosis, renal mass, or nephrolithiasis. IMPRESSION: 1. No sonographic evidence of acute cholecystitis. No gallstones or pericholecystic fluid. 2. Small gallbladder polyp measuring 0.24 cm. Typically benign when 1 cm, but follow-up may be considered. 3. Hepatomegaly with diffuse fatty liver (hepatic steatosis). 4. Simple hepatic cyst in the right lobe measuring 2.9 cm. No features concerning for complexity or malignancy. 5. Normal-appearing right kidney and normal caliber common bile duct. 6. Limited visualization of pancreas due to bowel gas, but no abnormality identified in the visualized portion. 7. Clinical correlation is suggested. Electronically signed by Gume Figueroa 08-17-2024 6:35 PM Pending Results Patient Have Any Pending Studies at Discharge: Yes Discharge Instructions Given to Patient (Per Discharging Provider) Mr Guerrero, Antonio were hospitalized due to low potassium, recent fevers/vomiting/nausea/diarrhea, and newly discovered atrial fibrillation ("a.fib"). Your potassium level normalized with supplementation. A.fib was treated with blood thinning medicine (Eliquis) and medicines to slow the heart rate down (metoprolol). Echocardiogram showed normal heart function and normal heart valves. Dr Renny aGona from [facility] saw you in consult and will continue to follow the a.fib outside of the hospital. We do not know how long you were in a.fib upon presentation to [facility], but the low potassium may have contributed to its development. In addition we performed various tests to determine the cause of your fevers, diarrhea, etc. Respiratory BioFire testing was fully negative; this checked you for about a dozen different viruses & some bacteria. Stool BioFire testing was fully negative; we did not find any infection in your stool. C diff testing was negative. This is another type of bacterial infection that causes diarrhea. Chest x-ray did not show pneumonia. Blood cultures did not show any infection in the bloodstream. Lyme disease testing was negative. Tests for other tick-borne diseases were negative. The only test pending is a test for anaplasmosis (tick-borne disease). Although your liver function tests were mildly elevated they have improved during your stay without any specific treatment. The exact cause of the abnormal tests was uncertain. You had a small cyst in the liver, a tiny gall bladder polyp, and fatty liver on gall bladder/liver ultrasound. None of these things requires any specific treatment at this time. See handout on fatty liver (you likely do not have REAL which is a more advanced type of liver disease). Recommendations - 1. Blood thinner (anticoagulant) - Eliquis 5mg twice daily. Take your first dose TONIGHT. -do not drink alcohol with Eliquis -do not take cixl-qbg-jynzurd anti-inflammatory medicines with Eliquis (motrin, ibuprofen, aleve, naprosyn) -HOLD your aspirin for now 2. In one month a decision will have to be made about whether to stay on Eliquis or switch to coumadin. 3. Metoprolol for the atrial fibrillation - take 75mg twice daily, first dose TONIGHT. 4. Check your heart rate at least twice daily and keep a log of those readings for your outpatient providers. You can use your Apple Watch, a blood pressure machine that shows the pulse rate, etc. 5. Please talk to your family doctor about getting a referral back to [facility] for the chronic diarrhea. You can take dapr-rwt-[id number] loperamide as needed for the diarrhea. 6. STOP your fish oil supplement. 7. STOP the recent cefdinir antibiotic. Follow-up - see separate section Return to [facility] if - -you feel dizzy or lightheaded -you have bleeding from any location as listed below -you have shortness of breath or chest pains -you have concerns that your a.fib is uncontrolled (your pulse rate is too fast) -any other concerns It was our pleasure to care for you! Total Time Total Time Spent Total Time Spent (In Minutes): 45 Coding Level of Care Code 84378 INP/OBS DISCH >30 MIN Diagnoses Atrial fibrillation with rapid ventricular response I48.91 Transaminitis R74.01 Acute hypokalemia E87.6 Microscopic colitis K52.839 Hyperlipidemia E78.5 GERD (gastroesophageal reflux disease) K21.9 Gall bladder polyp K82.4 Hepatic cyst K76.89 Fatty liver K76.0
[2024-08-22 10:37] LABS: Babesia microti DNA Not Detected (Not Detected)
== END 2024-08-20 17:55 | disposition home or self-care (01) | DRG 310 ==
LOC: ED 12:01 → SUATTDRO 15:36 → 2S 15:36 → INTOOBSV 15:36 → 2S 16:27